=== PATIENT | male | born 1980 | race Two or more races ===

== ENCOUNTER 2017-02-05 02:59 | Emergency (ER) | payer SELFPAY ==
[~2017-02-05] VITALS: Ht 172.7 cm; Wt 82.0 kg
[2017-02-05 03:32] VITALS: BP 149/90
== END 2017-02-05 05:50 | disposition left against medical advice (07) ==
LOC: ER 02:59
DX: S01.511A Laceration without foreign body of lip, initial encounter (principal); Z53.21 Procedure and treatment not carried out due to patient leaving prior to being seen by health care provider; X58.XXXA Exposure to other specified factors, initial encounter; Y93.89 Activity, other specified; Y92.89 Other specified places as the place of occurrence of the external cause; Y99.8 Other external cause status
CPT/HCPCS: X7700; Z7610